=== PATIENT | female | born 1985 | race Asian ===

== ENCOUNTER 2021-06-14 21:01 | Emergency (ER) | payer BC ==
[~2021-06-14] VITALS: Ht 170.2 cm; Wt 81.6 kg
--- NOTE | 2021-06-14 21:13 | NUR ---
Pt BIB [facility] from home c/o OD stated she took a handful of zoloft. A/O x3, no SOB or labored breathing. Afebrile. Denies CP/pressure. No CP/pressure. Denies GI/ distress. Does not have any plans of harming herself, denies SI at this moment.
--- NOTE | 2021-06-14 21:15 | NUR ---
JUAN ling [id number] [address] [id number] at bedside to interview patient.
--- NOTE | 2021-06-14 21:18 | NUR ---
Dr. Sanford at bedside, MSE in progress.
[2021-06-14 21:41] LABS: HEMATOCRIT 40.6 % (31.2-41.9); MEAN CORPUSCULAR HEMOGLOBIN 32.5 uug (24.7-32.8); MEAN CORPUSCULAR VOLUME 93.9 fL (75.5-95.3); PLATELET COUNT (AUTO) 179 K/uL (179-408)
[2021-06-14 21:49] LABS: CARBON DIOXIDE 25 mmol/L (21-32); CHLORIDE 105 mmol/L (98-107); CREATININE 0.7 mg/dL (0.6-1.3); GLUCOSE 104 mg/dL (74-106); POTASSIUM 3.8 mmol/L (3.5-5.1); UREA NITROGEN, BLOOD 11 mg/dL (7-18)
--- NOTE | 2021-06-14 21:50 | NUR ---
Poison control called, notified about the patient.
[2021-06-14 21:53] LABS: ETHANOL < 3 MG/DL (0-0)
[2021-06-14 21:55] LABS: ALANINE AMINOTRANSFERASE 18 U/L (14-59); ALKALINE PHOSPHATASE 51 U/L (50-136); ASPARTATE AMINOTRANSFERASE 13 U/L (15-37); BILIRUBIN,DIRECT 0.1 mg/dL (0.0-0.2); BILIRUBIN,TOTAL 0.6 mg/dL (0.2-1.0); TOTAL PROTEIN, SERUM 6.8 g/dL (6.4-8.2)
[2021-06-14 21:56] LABS: ACETAMINOPHEN < 2.0 ug/mL (10-30)
--- NOTE | 2021-06-14 22:00 | NUR ---
Called poision control, spoke to Dharmesh who suggested to monitor patient 6-8hrs with potline monitor, obtain baseline EKG. If patient becomes agittated give benzodiazepine. Monitor for seizures and HTN. Get EKG before discharging patient and if QT intervals is 500 or greater may give patient 1-2grams of Mag Sulfate.
[2021-06-14 22:02] LABS: THYROID STIMULATING HORMONE 4.161 mIU/mL (0.358-3.740)
--- NOTE | 2021-06-14 22:43 | NUR ---
Assisted pt to restroom, amulatory, steady gait.
[2021-06-14 22:56] LABS: *BILIRUBIN,URIN NEGATIVE (NEGATIVE); *BLOOD, URINE NEGATIVE (NEGATIVE); *COLOR,URINE YELLOW (YELLOW); *KETONES,URINE NEGATIVE (NEGATIVE); LEUKOCYTE ESTERASE ,URINE 1+ (NEGATIVE); NITRITE, URINE NEGATIVE (NEGATIVE); UGLUCOSE NEGATIVE (NEGATIVE)
[2021-06-14 23:11] LABS: *CLARITY,URINE HAZY (CLEAR); BACTERIA,URINE MODERATE /HPF (NONE SEEN); SQUAMOUS EPITHELIAL CELL,UR MANY /HPF (NONE SEEN)
[2021-06-14 23:25] LABS: *AMPHETAMINE, URINE NEGATIVE (NEGATIVE); *CANNABINOID, URINE NEGATIVE (NEGATIVE); *COCCAINE, URINE NEGATIVE (NEGATIVE); *OPIATE, URINE NEGATIVE (NEGATIVE); *PHENCYCLIDINE SCREEN,URINE NEGATIVE (NEGATIVE)
[2021-06-14] MEDS ORDERED: NITROFURANTOIN/NITROFURAN MAC 100 MG CAPSULE PO ONE (23:30)
--- NOTE | 2021-06-15 01:12 | NUR ---
Faxed EKG's, Facesheet, poison control noted, and COVID result to [facility] intake. .
--- NOTE | 2021-06-15 01:57 | NUR ---
Called [facility] admission at [phone] (option 3), spoke with Clarissa. Bianca (intake) coordinator is still working on her case and will give facility a call back when they have a bed.
--- NOTE | 2021-06-15 02:45 | NUR ---
Bianca (banquet coordinator) called to get update/report for patient. Per Bianca, we will continue to monitor patient until 5 AM in the ER per Poison Control recommendations. Pt denies any pain/discomfort. No n/v/d. VSS.
--- NOTE | 2021-06-15 03:32 | NUR ---
Pt noted to be in bed, using her phone. A/O x3, calm, cooperative. VSS. Denies any pain/discomfort at this time. Ambulated to restroom, steady gait.
[2021-06-15] MEDS ORDERED: ONDANSETRON ODT 4 MG TAB.RAPDIS ONE (03:54)
[2021-06-15] MEDS ORDERED: ONDANSETRON ODT 4 MG TAB.RAPDIS SL ONE ×2 (04:00→06:15)
--- NOTE | 2021-06-15 05:04 | NUR ---
Called poison control and spoke with Jayden, patient is medically cleared to be transferred. Bianca (grievance and appeals coordinator) is made aware.
--- NOTE | 2021-06-15 05:15 | NUR ---
Bianca gave a call back pt has been accepted to hospital under Dr. Hicks. [facility] ETA is 11AM (phone # [phone]).
[2021-06-15] MEDS ORDERED: ACETAMINOPHEN 325 MG TABLET PO ONE (06:15)
--- NOTE | 2021-06-15 07:05 | NUR ---
Patient is resting comfortably in bed with eyes closed. VSS.
--- NOTE | 2021-06-15 07:10 | NUR ---
Recieved pt in bed, awake A/O x4, pt denies SI/HI at this time. Refused to change to hospital gown. Nursing paper supervisor made aware of need for a 1 to 1 sitter, but no staff available at this time.
--- NOTE | 2021-06-15 08:34 | NUR ---
Breakfast tray provided, pt stated no appetite. continue to monitor.
--- NOTE | 2021-06-15 09:37 | NUR ---
Pt is aware of transfer to [facility], pt signed transfer consent.
--- NOTE | 2021-06-15 09:41 | NUR ---
Report given to LUZ Durbin at [facility].
--- NOTE | 2021-06-15 09:42 | NUR ---
Pt c/o headache, DR Dean made aware and order recieved.
[2021-06-15] MEDS ORDERED: IBUPROFEN 800 MG TABLET PO ONE (09:45)
[2021-06-15] MEDS ORDERED: IBUPROFEN 800 MG TABLET ONE (10:01)
--- NOTE | 2021-06-15 11:15 | NUR ---
IV removed. Catheter intact and site benign. Pressure and 4x4 gauze applied to site. No bleeding noted.
--- NOTE | 2021-06-15 11:25 | NUR ---
Report given to transfering medical officer, all belongings sent w/ pt. Original hold given to medical officer. Pt left ER in stable condition.
== END 2021-06-15 11:32 ==
LOC: ER 21:01 → EDSEX 21:01 → ER 06-15 11:32
DX: O9A.23 Injury, poisoning and certain other consequences of external causes complicating the puerperium (principal); T43.222A Poisoning by selective serotonin reuptake inhibitors, intentional self-harm, initial encounter; R53.1 Weakness; Y92.013 Bedroom of single-family (private) house as the place of occurrence of the external cause; O99.345 Other mental disorders complicating the puerperium; F53.0 Postpartum depression; Z20.822 Contact with and (suspected) exposure to COVID-19
CPT/HCPCS: 36415; 84443; 85025; 87086; 93005; A4663; G0480; Q0162